=== PATIENT | male | born 1965 | race Caucasian/White ===

== ENCOUNTER 2017-08-13 00:27 | Inpatient (IN) | payer OTHER ==
[2017-08-13] VITALS (7 sets, daily range): BP systolic 92–136; BP diastolic 49–94; Ht 160 cm; Wt 54.4 kg
[~2017-08-13] VITALS: Ht 160 cm; Wt 54.4 kg
[~2017-08-13 00:27] MED LIST: DIL100 PO; DILANTIN100 MG; KEP500 PO
[2017-08-13 01:44] LABS: UA SPECIFIC GRAVITY >=1.030 (1.005-1.035); microscopic required? YES; urine erythrocyte 3+ (NEGATIVE)
[2017-08-13 02:02] LABS: BASOPHIL % 0.5 % (0-2); CALCIUM 7.2 mg/dL (8.5-10.1); CHLORIDE SERUM 103 mmol/L (98-107); CREATININE SERUM 0.7 mg/dL (0.7-1.3); GFR1 > 60 mL/min; GLUCOSE SERUM 144 mg/dL (74-106); RED CELL DISTRIBUTION WIDTH 13.1 % (11.5-14.5); SODIUM SERUM 138 mmol/L (136-145)
[2017-08-13 02:06] LABS: PLATELET COUNT 109 x10^3mcL (130-400)
[2017-08-13 02:07] LABS: ALKALINE PHOSPHATASE 116 U/L (46-116); ALT/SGPT 65 U/L (16-63); AST/SGOT 138 U/L (15-37); BILIRUBIN TOTAL 1.34 mg/dL (0.20-1.00); TOTAL PROTEIN, SERUM 6.9 g/dL (6.4-8.2)
[2017-08-13 02:27] LABS: ALBUMIN 2.3 g/dL (3.4-5.0); CHOLESTEROL 130 mg/dL (<200); HDL CHOLESTEROL 67 mg/dL (40-60)
[2017-08-13 04:38] LABS: APPEARANCE CSF CLEAR; COLOR CSF COLORLESS; RBC CSF 236 /cumm (0); WBC CSF 3 /cumm (0-5)
[2017-08-13 04:39] LABS: APPEARANCE CSF CLEAR; COLOR CSF COLORLESS; RBC CSF 9 /cumm (0); WBC CSF 1 /cumm (0-5)
[2017-08-13 04:41] LABS: TOTAL PROTEIN CSF 25.6 mg/dL (15-45)
[2017-08-13 07:27] LABS: T3 TOTAL 1.41 ng/mL
[2017-08-13 08:08] LABS: AMPHETAMINE QUAL UR NONE DETECTED (NEG <=1000)
[2017-08-13 08:17] LABS: PHOSPHOROUS 2.1 mg/dL (2.5-4.9)
[2017-08-13 08:32] LABS: FREE T4 1.05 ng/dL (0.76-1.46); FREE THYROXINE INDEX 2.6 ug/dL (1.4-4.5); T4(THYROXINE) 8.5 ug/dL (4.7-13.3)
[2017-08-14 05:41] VITALS: BP 91/57
[2017-08-14 06:43] LABS: CALCIUM 7.3 mg/dL (8.5-10.1); CARBON DIOXIDE 26.1 mmol/L (21-32); CHLORIDE SERUM 106 mmol/L (98-107); CREATININE SERUM 0.4 mg/dL (0.7-1.3); GFR1 > 60 mL/min; GLUCOSE SERUM 82 mg/dL (74-106); POTASSIUM SERUM 3.3 mmol/L (3.5-5.1); SODIUM SERUM 138 mmol/L (136-145)
[2017-08-14 08:20] LABS: BASOPHIL % 0.5 % (0-2); RED CELL DISTRIBUTION WIDTH 13.1 % (11.5-14.5)
[2017-08-14 08:29] LABS: PLATELET COUNT 80 x10^3mcL (130-400)
[2017-08-14 09:33] VITALS: BP 129/86
[2017-08-14 12:41] VITALS: BP 113/74
[2017-08-14 17:03] VITALS: BP 90/57
[2017-08-14 21:08] VITALS: BP 90/54
[2017-08-15 06:08] VITALS: BP 104/66
[2017-08-15 07:09] LABS: BASOPHIL % 1.3 % (0-2); RED CELL DISTRIBUTION WIDTH 13.4 % (11.5-14.5)
[2017-08-15 07:28] LABS: PLATELET COUNT 94 x10^3mcL (130-400)
[2017-08-15 07:58] LABS: CALCIUM 7.6 mg/dL (8.5-10.1); CARBON DIOXIDE 24.2 mmol/L (21-32); CHLORIDE SERUM 108 mmol/L (98-107); CREATININE SERUM 0.6 mg/dL (0.7-1.3); GFR1 > 60 mL/min; GLUCOSE SERUM 79 mg/dL (74-106); PHOSPHOROUS 3.4 mg/dL (2.5-4.9); SODIUM SERUM 141 mmol/L (136-145)
[2017-08-15 08:05] LABS: POTASSIUM SERUM 2.7 mmol/L (3.5-5.1)
[2017-08-15 11:30] VITALS: BP 100/64
[2017-08-15 13:54] VITALS: BP 104/70
[2017-08-15 17:26] VITALS: BP 108/73
[2017-08-15 21:36] LABS: CALCIUM 7.3 mg/dL (8.5-10.1); CARBON DIOXIDE 24.2 mmol/L (21-32); CHLORIDE SERUM 111 mmol/L (98-107); CREATININE SERUM 0.7 mg/dL (0.7-1.3); GFR1 > 60 mL/min; GLUCOSE SERUM 112 mg/dL (74-106); POTASSIUM SERUM 3.5 mmol/L (3.5-5.1); SODIUM SERUM 139 mmol/L (136-145)
[2017-08-15 21:47] VITALS: BP 103/59
[2017-08-16 05:35] VITALS: BP 115/69
[2017-08-16 06:57] LABS: BASOPHIL % 0.7 % (0-2); RED CELL DISTRIBUTION WIDTH 13.3 % (11.5-14.5)
[2017-08-16 07:00] LABS: PLATELET COUNT 93 x10^3mcL (130-400)
[2017-08-16 07:18] LABS: CALCIUM 7.2 mg/dL (8.5-10.1); CARBON DIOXIDE 23.9 mmol/L (21-32); CHLORIDE SERUM 109 mmol/L (98-107); CREATININE SERUM 0.6 mg/dL (0.7-1.3); GFR1 > 60 mL/min; GLUCOSE SERUM 82 mg/dL (74-106); MAGNESIUM 1.7 mg/dL (1.8-2.4); PHOSPHOROUS 3.4 mg/dL (2.5-4.9); POTASSIUM SERUM 3.8 mmol/L (3.5-5.1); SODIUM SERUM 141 mmol/L (136-145)
[2017-08-16 08:38] VITALS: BP 110/67
[2017-08-16 13:13] VITALS: BP 87/54
[2017-08-16 18:02] VITALS: BP 90/53
[2017-08-16 21:11] VITALS: BP 91/58
[2017-08-17] VITALS (7 sets, daily range): BP systolic 85–98; BP diastolic 54–64
[2017-08-17 06:09] LABS: BASOPHIL % 1.2 % (0-2); RED CELL DISTRIBUTION WIDTH 13.5 % (11.5-14.5)
[2017-08-17 06:14] LABS: CALCIUM 7.3 mg/dL (8.5-10.1); CHLORIDE SERUM 109 mmol/L (98-107); CREATININE SERUM 0.6 mg/dL (0.7-1.3); GFR1 > 60 mL/min; GLUCOSE SERUM 77 mg/dL (74-106); MAGNESIUM 2.2 mg/dL (1.8-2.4); PHOSPHOROUS 3.7 mg/dL (2.5-4.9); POTASSIUM SERUM 3.7 mmol/L (3.5-5.1); SODIUM SERUM 142 mmol/L (136-145)
[2017-08-17 06:21] LABS: PLATELET COUNT 85 x10^3mcL (130-400)
[2017-08-17] MEDS ORDERED: LEVETIRACET100 MG/M1 PO (17:37)
[2017-08-17] MEDS ORDERED: DILANTIN100 MG PO (17:39)
[2017-08-18] VITALS (8 sets, daily range): BP systolic 80–95; BP diastolic 50–58
[2017-08-18 05:54] LABS: BASOPHIL % 0.6 % (0-2); RED CELL DISTRIBUTION WIDTH 13.5 % (11.5-14.5)
[2017-08-18 06:14] LABS: CALCIUM 7.6 mg/dL (8.5-10.1); CARBON DIOXIDE 27.1 mmol/L (21-32); CHLORIDE SERUM 108 mmol/L (98-107); CREATININE SERUM 0.7 mg/dL (0.7-1.3); GFR1 > 60 mL/min; GLUCOSE SERUM 79 mg/dL (74-106); POTASSIUM SERUM 3.5 mmol/L (3.5-5.1); SODIUM SERUM 140 mmol/L (136-145)
[2017-08-18 06:55] LABS: PLATELET COUNT 106 x10^3mcL (130-400)
[2017-08-19 05:39] VITALS: BP 98/63
[2017-08-19 06:20] LABS: CALCIUM 7.2 mg/dL (8.5-10.1); CARBON DIOXIDE 26.5 mmol/L (21-32); CHLORIDE SERUM 105 mmol/L (98-107); CREATININE SERUM 0.7 mg/dL (0.7-1.3); GFR1 > 60 mL/min; GLUCOSE SERUM 93 mg/dL (74-106); POTASSIUM SERUM 3.8 mmol/L (3.5-5.1); SODIUM SERUM 141 mmol/L (136-145)
[2017-08-19 06:24] LABS: BASOPHIL % 0.7 % (0-2); RED CELL DISTRIBUTION WIDTH 13.7 % (11.5-14.5)
[2017-08-19 06:25] LABS: PLATELET COUNT 105 x10^3mcL (130-400)
[2017-08-19 10:00] VITALS: BP 90/57
[2017-08-19 12:38] VITALS: BP 90/57
[2017-08-19 14:22] VITALS: BP 92/46
[2017-08-19] MEDS ORDERED: LEVETIRACET100 MG/M1 GT (16:23)
[2017-08-19] MEDS ORDERED: DILANTIN100 MG GT (16:23)
[2017-08-19 17:00] VITALS: BP 117/71
[2017-08-19 17:04] VITALS: BP 87/56
== END 2017-08-19 18:00 | disposition home health service (06) | DRG 146 ==
LOC: ED 00:27 → MU 05:27 → DU 05:27 → MU 08-17 07:27 → DU 08-17 08:52 → MU 08-19 14:45
PROVIDERS: Emergency Medicine; Family Medicine; Internal Medicine Gastroenterology; Student in an Organized Health Care Education/Training Program
PROC: 0HBRXZZ Excision of Toe Nail, External Approach (ICD-10-PCS; 2017-08-14)
PROC: 0HBRXZZ Excision of Toe Nail, External Approach (ICD-10-PCS; 2017-08-14)
PROC: 0HBRXZZ Excision of Toe Nail, External Approach (ICD-10-PCS; 2017-08-14)
PROC: 0HBRXZZ Excision of Toe Nail, External Approach (ICD-10-PCS; 2017-08-14)
PROC: 0HBRXZZ Excision of Toe Nail, External Approach (ICD-10-PCS; 2017-08-14)
PROC: 0HBRXZZ Excision of Toe Nail, External Approach (ICD-10-PCS; 2017-08-14)
PROC: 0HBRXZZ Excision of Toe Nail, External Approach (ICD-10-PCS; 2017-08-14)
PROC: 0HBRXZZ Excision of Toe Nail, External Approach (ICD-10-PCS; 2017-08-14)
PROC: 0HBRXZZ Excision of Toe Nail, External Approach (ICD-10-PCS; 2017-08-14)
PROC: 0HBRXZZ Excision of Toe Nail, External Approach (ICD-10-PCS; 2017-08-14)
PROC: 0DB18ZX Excision of Upper Esophagus, Via Natural or Artificial Opening Endoscopic, Diagnostic (ICD-10-PCS; 2017-08-15)
PROC: 0DH68UZ Insertion of Feeding Device into Stomach, Via Natural or Artificial Opening Endoscopic (ICD-10-PCS; 2017-08-17)
PROC: 0DB18ZX Excision of Upper Esophagus, Via Natural or Artificial Opening Endoscopic, Diagnostic (ICD-10-PCS; principal; 2017-08-17 14:00)
DX: C14.0 Malignant neoplasm of pharynx, unspecified (principal); J69.0 Pneumonitis due to inhalation of food and vomit; J96.01 Acute respiratory failure with hypoxia; N17.0 Acute kidney failure with tubular necrosis; E43 Unspecified severe protein-calorie malnutrition; Z68.43 Body mass index [BMI] 50.0-59.9, adult; K22.2 Esophageal obstruction; J98.8 Other specified respiratory disorders; R13.12 Dysphagia, oropharyngeal phase; G40.901 Epilepsy, unspecified, not intractable, with status epilepticus; T42.6X6A Underdosing of other antiepileptic and sedative-hypnotic drugs, initial encounter; I16.0 Hypertensive urgency; B35.1 Tinea unguium; E87.6 Hypokalemia; E83.39 Other disorders of phosphorus metabolism; K74.69 Other cirrhosis of liver; B19.20 Unspecified viral hepatitis C without hepatic coma; F10.10 Alcohol abuse, uncomplicated; F11.11 Opioid abuse, in remission; Z91.14 Patient's other noncompliance with medication regimen; Z81.8 Family history of other mental and behavioral disorders; Z83.3 Family history of diabetes mellitus; Y63.6 Underdosing and nonadministration of necessary drug, medicament or biological substance; Y92.009 Unspecified place in unspecified non-institutional (private) residence as the place of occurrence of the external cause
CPT/HCPCS: 36600; 43235; 83880; 84439; 87804; 88344; 92610-GN; 97110-GP; A4628; C9113; G0480; J0330; J0696; J1165; J1200; J1610; J1885; J1956; J2250; J2310; J2704; J3010; J3475; J3480; J3490; J7030; Q0092; Q9967

== ENCOUNTER 2017-09-23 07:03 | Emergency (ER) | payer OTHER ==
[~2017-09-23] VITALS: Ht 175.3 cm; Wt 52.2 kg
[~2017-09-23 07:03] MED LIST changes: +DILANTIN100 MG GT; +DILANTIN100 MG PO; +LEVETIRACET100 MG/M1 GT; +LEVETIRACET100 MG/M1 PO
[2017-09-23 07:06] VITALS: Ht 175.3 cm; Wt 52.2 kg
[2017-09-23 08:58] VITALS: BP 126/52
== END 2017-09-23 08:58 | disposition home or self-care (01) ==
LOC: ED 07:03
DX: G40.909 Epilepsy, unspecified, not intractable, without status epilepticus (principal)

== ENCOUNTER 2017-12-17 12:53 | Emergency (ER) | payer OTHER ==
[~2017-12-17] VITALS: Ht 172.7 cm; Wt 60.3 kg
[2017-12-17 12:58] VITALS: Ht 172.7 cm; Wt 60.3 kg
[2017-12-17 13:31] LABS: BASOPHIL % 1.7 % (0-2); RED CELL DISTRIBUTION WIDTH 13.6 % (11.5-14.5)
[2017-12-17 13:35] LABS: PLATELET COUNT 86 x10^3mcL (130-400)
[2017-12-17 13:49] LABS: CALCIUM 7.4 mg/dL (8.5-10.1); CARBON DIOXIDE 29.2 mmol/L (21-32); CHLORIDE SERUM 105 mmol/L (98-107); CREATININE SERUM 0.5 mg/dL (0.7-1.3); GFR1 > 60 mL/min; GLUCOSE SERUM 88 mg/dL (74-106); POTASSIUM SERUM 3.5 mmol/L (3.5-5.1); SODIUM SERUM 139 mmol/L (136-145)
[2017-12-17 13:55] LABS: ALBUMIN 2.2 g/dL (3.4-5.0); ALKALINE PHOSPHATASE 148 U/L (46-116); ALT/SGPT 52 U/L (16-63); AST/SGOT 76 U/L (15-37); BILIRUBIN TOTAL 0.9 mg/dL (0.20-1.00); TOTAL PROTEIN, SERUM 6.8 g/dL (6.4-8.2)
[2017-12-17 15:20] VITALS: BP 92/57
== END 2017-12-17 15:21 | disposition home or self-care (01) ==
LOC: ED 12:53
PROVIDERS: Emergency Medicine
DX: C14.0 Malignant neoplasm of pharynx, unspecified (principal); D69.49 Other primary thrombocytopenia; Z43.1 Encounter for attention to gastrostomy
CPT/HCPCS: J7030; Q0092